=== PATIENT | male | born 2005 | race African-American/Black ===

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

== ENCOUNTER 2024-01-03 18:38 | Emergency (ER) | payer OTHER ==
[~2024-01-03 18:38] MED LIST: CEPH500C PO
== END 2024-01-03 19:19 | disposition left against medical advice (07) ==
LOC: M ED 18:38
DX: Z53.21 Procedure and treatment not carried out due to patient leaving prior to being seen by health care provider (principal)

== ENCOUNTER 2025-01-16 09:30 | Emergency (ER) | payer OTHER ==
[~2025-01-16] VITALS: Ht 180.3 cm; Wt 108.4 kg
[2025-01-16 09:31] VITALS: TEMP 97.7
[2025-01-16 10:39] LABS: BASO # 0.0 10^3/uL (0.0-0.2); BASO % 0.6 % (0.0-1.0); EOS # 0.3 10^3/uL (0.0-0.5); EOS % 4.5 % (0.0-3.0); LYMPH # 0.9 10^3/uL (1.5-5.0); LYMPH % 12.8 % (24.0-44.0); MONO # 0.5 10^3/uL (0.0-0.8); MONO % 7.0 % (2.0-8.0); NEUTROPHILS # 5.3 10^3/uL (1.5-8.5); NEUTROPHILS % 74.8 % (36.0-66.0); PLATELET COUNT, AUTOMATED 203 10^3/uL (150-450)
[2025-01-16 11:08] LABS: CK-MB VALUE MASS 4.9 NG/ML (<3.6)
[2025-01-16 11:09] LABS: ALT/SGPT 25 U/L (7.0-40); AST/SGOT 23 U/L (<34); CALCIUM LEVEL 8.6 MG/DL (8.5-10.1); CARBON DIOXIDE LEVEL 26 MMOL/L (20-31); CHLORIDE LEVEL 107 MMOL/L (98-107); CREATININE FOR GFR 0.94 MG/DL (0.70-1.30); GLOMERULAR FILTRATION RATE > 90.0 (>60); POTASSIUM SERUM 4.3 MMOL/L (3.5-5.1); SODIUM LEVEL 138 MMOL/L (136-145)
[2025-01-16 11:18] LABS: CPK CREATINE PHOSPHOKINASE 341 U/L (46-171); MB/CK RELATIVE INDEX 1.43 (< OR =4)
[2025-01-16] MEDS: IPRATROPIUM 0.5 MG/ALBUTEROL 2.5 MG INH SOL UD 3 ML NEB SCH (11:20)
[2025-01-16] MEDS ORDERED: VENTAER INH (12:01)
[2025-01-16] MEDS ORDERED: PRED20TA PO (12:01)
[2025-01-16] MEDS: ALBUTEROL 90 MCG/ACT 8 GM HFA INHALER INH ONE (12:29)
[2025-01-16 12:30] VITALS: BP 135/74; O2SAT 97
[2025-01-16 12:39] LABS: CK-MB VALUE MASS 4.4 NG/ML (<3.6); CPK CREATINE PHOSPHOKINASE 312.0 U/L (46-171); MB/CK RELATIVE INDEX 1.41 (< OR =4)
== END 2025-01-16 13:04 | disposition home or self-care (01) ==
LOC: M ED 09:30
DX: J45.901 Unspecified asthma with (acute) exacerbation (principal); F17.200 Nicotine dependence, unspecified, uncomplicated; F12.10 Cannabis abuse, uncomplicated; F10.10 Alcohol abuse, uncomplicated; Z79.52 Long term (current) use of systemic steroids; Z79.51 Long term (current) use of inhaled steroids
CPT/HCPCS: 71046; 80048; 80076; 82550; 82553; 83690; 84443; 84484; 85025; 85730; 93005; 94640; 96374; 99284; J1100